=== PATIENT | female | born 1955 | race Asian ===

== ENCOUNTER 2020-02-14 15:06 | Emergency (ER) | payer BC ==
[~2020-02-14] VITALS: Ht 170.2 cm; Wt 91.0 kg
[2020-02-14] MEDS ORDERED: LIDOCAINE HCL/PF 1% 10 MG/ML 5ML VIAL IJ ONE (16:30)
[2020-02-14] MEDS ORDERED: TETANUS, DIPHTHERIA, PERTUSSIS VAC/PF 0.5ML (>7YR OLD) IM ONE (16:30)
[2020-02-14] MEDS ORDERED: BACITRACIN ZINC OINT UDPKT TOP ONE (16:30)
[2020-02-14 18:10] VITALS: BP 168/89
== END 2020-02-14 18:35 | disposition home or self-care (01) ==
LOC: ER 15:06
DX: S61.011A Laceration without foreign body of right thumb without damage to nail, initial encounter (principal); E11.9 Type 2 diabetes mellitus without complications; E78.00 Pure hypercholesterolemia, unspecified; I10 Essential (primary) hypertension; Z88.6 Allergy status to analgesic agent; Z98.890 Other specified postprocedural states; Z90.710 Acquired absence of both cervix and uterus; X58.XXXA Exposure to other specified factors, initial encounter; Y93.89 Activity, other specified; Y92.89 Other specified places as the place of occurrence of the external cause; Y99.8 Other external cause status
CPT/HCPCS: 12001; 90471; 90715; 99283; J3490

== ENCOUNTER 2021-05-13 12:28 | Inpatient (IN) | payer BC ==
[~2021-05-13] VITALS: Ht 170.2 cm; Wt 90.7 kg
[2021-05-13] MEDS ORDERED: ADENOSINE 3 MG/ML 2ML VIAL IV ONE ×3 (13:00)
[2021-05-13] MEDS ORDERED: ASPIRIN 81MG TABLET PO ONE (13:00)
[2021-05-13] MEDS ORDERED: SODIUM CHLORIDE 0.9% 1,000 ML IV ONE (13:00)
[2021-05-13 13:26] LABS: CHLORIDE 104 mEq/L (98-107)
[2021-05-13 13:30] LABS: BASOPHILS % 1.2 % (0.0-2.0); EOSINOPHILS % 2.4 % (0.0-5.0); HEMOGLOBIN. 13.9 g/dL (12.0-16.0); LYMPHOCYTES % 24.2 % (20.0-50.0); MEAN CORPUSCULAR HEMOGLOBIN 28.5 pg (28.0-32.0); MEAN CORPUSCULAR VOLUME 86.6 fL (81.0-99.0); MEAN PLATELET VOLUME 8.1 fl (7.4-10.4); MONOCYTES % 6.4 % (2.0-8.0); NEUTROPHILS % 65.8 % (40.0-76.0); PLATELET 300 x1000/uL (130-400); RED BLOOD CELL COUNT 4.86 mill/uL (4.2-5.4); RED CELL DISTRIBUTION WIDTH 14.9 % (11.6-14.6)
[2021-05-13 13:32] LABS: D-DIMER 0.86 mg/L FEU (<0.50); PARTIAL THROMBOPLASTIN TIME 28.7 sec (23.4-31.0); PROTHROMBIN TIME 10.5 sec (9.6-11.0)
[2021-05-13] MEDS ORDERED: DEXT 5% IV STA (13:44)
[2021-05-13] MEDS ORDERED: PROCAINAMIDE HCL IV STA (13:44)
[2021-05-13] MEDS ORDERED: WATER IV STA (13:44)
[2021-05-13] MEDS ORDERED: PROCAINAMIDE HCL IV NR (14:15)
[2021-05-13] MEDS ORDERED: ENOXAPARIN 100MG/ML SYR SUBCUT ONE (14:15)
[2021-05-13] MEDS ORDERED: WATER IV NR (14:15)
[2021-05-13] MEDS ORDERED: DEXT 5% IV NR (14:15)
[2021-05-13] MEDS ORDERED: DILTIAZEM HCL 125 MG in DEXT 5% WATER 100 ML IV PRN (15:45)
[2021-05-13] MEDS ORDERED: DILTIAZEM HCL 5MG/ML 5ML VIAL IV NR (16:00)
[2021-05-13] MEDS ORDERED: ACETAMINOPHEN 325MG TABLET PO PRN (16:45)
[2021-05-13] MEDS ORDERED: ENOXAPARIN 40MG/0.4ML SYR SUBCUT SCH (16:45)
[2021-05-13] MEDS ORDERED: GUAIFENESIN 200MG/10ML SUGAR FREE UDC PO PRN (16:45)
[2021-05-13] MEDS: DILTIAZEM HCL 125 MG in DEXT 5% WATER 100 ML IV PRN (16:45)
[2021-05-13] MEDS ORDERED: MAGNESIUM/ALUMINUM HYDROXIDE/SIMETHICONE 30ML UDC PO PRN (16:45)
[2021-05-13] MEDS ORDERED: CLONIDINE 0.1MG TABLET PO PRN (16:45)
[2021-05-13] MEDS ORDERED: IPRATROPIUM/ALBUTEROL 0.5-3(2.5)MG/3ML NEB NEB PRN (16:45)
[2021-05-13] MEDS ORDERED: DOCUSATE SODIUM 100MG CAPSULE PO PRN (16:45)
[2021-05-13] MEDS ORDERED: DEXTROSE 50% WATER 50ML SYRINGE IV PRN (16:45)
[2021-05-13] MEDS ORDERED: NITROGLYCERIN 0.4MG TABLET SL SL PRN (16:45)
[2021-05-13 17:09] LABS: TOTAL IRON BINDING CAPACITY 210 ug/dL (250-450)
[2021-05-13 17:42] LABS: VITAMIN B12 SERUM 592 pg/mL (211-911)
[2021-05-13 17:44] LABS: FOLIC ACID (FOLATE) SERUM > 20.00 ng/mL (>5.38)
[2021-05-13] MEDS: INSULIN LISPRO 100 UNITS/ML SUBCUT SCH ×2 (18:20→23:45)
[2021-05-13] MEDS ORDERED: ZOLPIDEM TARTRATE 5MG TABLET PO PRN (20:00)
[2021-05-13] MEDS ORDERED: NALOXONE HCL 0.4MG/ML VIAL IV PRN (20:15)
[2021-05-13] MEDS: FUROSEMIDE 40MG/4ML VIAL IVP SCH (21:08)
[2021-05-13] MEDS: SPIRONOLACTONE 25MG TABLET PO SCH (21:09)
[2021-05-13] MEDS: DILTIAZEM HCL 60MG TABLET PO SCH ×2 (21:09→23:35)
[2021-05-13] MEDS: FAMOTIDINE 20MG TABLET PO SCH (21:09)
[2021-05-13 22:50] VITALS: BP 136/106
[2021-05-13 23:20] VITALS: BP 112/75
[2021-05-13] MEDS: ASCORBIC ACID 500 MG TABLET PO SCH (23:35)
[2021-05-13] MEDS: BLOOD SUGAR DIAGNOSTIC STRIP TEST SCH (23:43)
[2021-05-13 23:50] VITALS: BP 117/76
[2021-05-14] VITALS (39 sets, daily range): BP systolic 100–159; BP diastolic 32–107
[2021-05-14 00:59] LABS: CREATINE KINASE 65 IU/L (26-192)
[2021-05-14 01:00] LABS: CREATINE KINASE MB FRACTION < 1.0 ng/mL (0.5-3.6)
[2021-05-14] MEDS: DILTIAZEM HCL 125 MG in DEXT 5% WATER 100 ML IV PRN (03:00)
[2021-05-14] MEDS: ENOXAPARIN 100MG/ML SYR SUBCUT SCH ×2 (06:24→17:26)
[2021-05-14] MEDS: FUROSEMIDE 40MG/4ML VIAL IVP SCH (06:25)
[2021-05-14] MEDS: DILTIAZEM HCL 60MG TABLET PO SCH (06:25)
[2021-05-14 06:41] LABS: BASOPHILS % 1.1 % (0.0-2.0); EOSINOPHILS % 1.6 % (0.0-5.0); HEMATOCRIT. 37.2 % (36.0-48.0); HEMOGLOBIN. 12.8 g/dL (12.0-16.0); LYMPHOCYTES % 15.3 % (20.0-50.0); MEAN CORPUSCULAR HEMOGLOBIN 30.1 pg (28.0-32.0); MEAN CORPUSCULAR VOLUME 87.3 fL (81.0-99.0); MEAN PLATELET VOLUME 8.1 fl (7.4-10.4); MONOCYTES % 5.8 % (2.0-8.0); NEUTROPHILS % 76.2 % (40.0-76.0); PLATELET 241 x1000/uL (130-400); RED BLOOD CELL COUNT 4.27 mill/uL (4.2-5.4); RED CELL DISTRIBUTION WIDTH 14.7 % (11.6-14.6)
[2021-05-14 06:59] LABS: CHLORIDE 108 mEq/L (98-107)
[2021-05-14 07:22] LABS: PHOSPHORUS 3.1 mg/dL (2.5-4.9)
[2021-05-14 07:24] LABS: CREATINE KINASE 68 IU/L (26-192)
[2021-05-14 07:26] LABS: CREATINE KINASE MB FRACTION < 1.0 ng/mL (0.5-3.6)
[2021-05-14] MEDS: BLOOD SUGAR DIAGNOSTIC STRIP TEST SCH ×4 (07:50→21:52)
[2021-05-14] MEDS ORDERED: ASPIRIN 325MG EC TABLET PO SCH (09:00)
[2021-05-14] MEDS: ZINC SULFATE 220 MG ( 50 ) CAPSULE PO SCH (09:14)
[2021-05-14] MEDS: FAMOTIDINE 20MG TABLET PO SCH ×2 (09:14→21:50)
[2021-05-14] MEDS: ASCORBIC ACID 500 MG TABLET PO SCH ×2 (09:14→21:50)
[2021-05-14] MEDS: SPIRONOLACTONE 25MG TABLET PO SCH ×2 (09:14→21:51)
[2021-05-14] MEDS: CHOLECALCIFEROL (D3) 1000 UNIT TABLET PO SCH (09:15)
[2021-05-14] MEDS: INSULIN LISPRO 100 UNITS/ML SUBCUT SCH ×4 (09:16→21:52)
[2021-05-14] MEDS: DILTIAZEM HCL 90MG TABLET PO SCH ×3 (12:16→23:42)
[2021-05-14 14:32] LABS: CLARITY URINE CLEAR (CLEAR); COLOR URINE YELLOW (YELLOW); KETONES URINE NEGATIVE (NEGATIVE); LEUKOCYTE ESTERASE URINE NEGATIVE (NEGATIVE); NITRITE URINE NEGATIVE (NEGATIVE); OCCULT BLOOD URINE NEGATIVE (NEGATIVE); PH URINE 5.5 (4.5-8.0); PROTEIN URINE NEGATIVE (NEGATIVE); SPECIFIC GRAVITY URINE 1.008 (1.005-1.030); UROBILINOGEN URINE 0.2 E.U./dL (0.2-1.0)
[2021-05-14 14:36] LABS: OPIATES URINE SCREEN NEGATIVE (NEGATIVE)
[2021-05-14 14:37] LABS: *AMPHETAMINES SCREEN URINE NEGATIVE (NEGATIVE); *BARBITURATES SCREEN URINE NEGATIVE (NEGATIVE); *BENZODIAZEPINES SCREEN URINE NEGATIVE (NEGATIVE); *COCAINE SCREEN URINE NEGATIVE (NEGATIVE); CANNABINOID URINE SCREEN NEGATIVE (NEGATIVE); METHADONE URINE SCREEN NEGATIVE (NEGATIVE); PHENCYCLIDINE URINE SCREEN NEGATIVE (NEGATIVE)
[2021-05-15] VITALS (32 sets, daily range): BP systolic 96–178; BP diastolic 43–93
[2021-05-15] MEDS: ENOXAPARIN 100MG/ML SYR SUBCUT SCH (06:10)
[2021-05-15] MEDS: DILTIAZEM HCL 90MG TABLET PO SCH (06:13)
[2021-05-15 06:17] LABS: BASOPHILS % 1.1 % (0.0-2.0); EOSINOPHILS % 2.6 % (0.0-5.0); HEMOGLOBIN. 12.8 g/dL (12.0-16.0); LYMPHOCYTES % 19.9 % (20.0-50.0); MEAN CORPUSCULAR HEMOGLOBIN 28.9 pg (28.0-32.0); MEAN PLATELET VOLUME 8.2 fl (7.4-10.4); MONOCYTES % 7.6 % (2.0-8.0); NEUTROPHILS % 68.8 % (40.0-76.0); PLATELET 234 x1000/uL (130-400); RED BLOOD CELL COUNT 4.42 mill/uL (4.2-5.4); RED CELL DISTRIBUTION WIDTH 14.6 % (11.6-14.6)
[2021-05-15] MEDS: BLOOD SUGAR DIAGNOSTIC STRIP TEST SCH ×4 (08:28→20:55)
[2021-05-15] MEDS: ASCORBIC ACID 500 MG TABLET PO SCH ×2 (08:36→20:54)
[2021-05-15] MEDS: CHOLECALCIFEROL (D3) 1000 UNIT TABLET PO SCH (08:36)
[2021-05-15] MEDS: FAMOTIDINE 20MG TABLET PO SCH ×2 (08:36→20:55)
[2021-05-15] MEDS: SPIRONOLACTONE 25MG TABLET PO SCH ×2 (08:36→20:55)
[2021-05-15] MEDS: ASPIRIN 81MG EC TABLET PO SCH (08:38)
[2021-05-15] MEDS: ZINC SULFATE 220 MG ( 50 ) CAPSULE PO SCH (08:38)
[2021-05-15] MEDS: INSULIN LISPRO 100 UNITS/ML SUBCUT SCH ×4 (08:39→20:56)
[2021-05-15] MEDS ORDERED: APIXABAN 5 MG TABLET PO SCH (09:30)
[2021-05-15] MEDS ORDERED: DILTIAZEM HCL 90MG TABLET PO SCH (12:00)
[2021-05-15] MEDS: APIXABAN 5 MG TABLET PO SCH (18:47)
[2021-05-15] MEDS: ACETAMINOPHEN 325MG TABLET PO PRN (20:54)
[2021-05-15] MEDS: ATORVASTATIN CALCIUM 40MG TABLET PO SCH (20:54)
[2021-05-15] MEDS: DILTIAZEM HCL 180MG CAPSULE CD 24HR PO SCH (20:55)
[2021-05-16] VITALS (23 sets, daily range): BP systolic 96–141; BP diastolic 48–90
[2021-05-16 06:55] LABS: BASOPHILS % 0.6 % (0.0-2.0); EOSINOPHILS % 1.8 % (0.0-5.0); HEMATOCRIT. 37.4 % (36.0-48.0); HEMOGLOBIN. 12.7 g/dL (12.0-16.0); LYMPHOCYTES % 13.8 % (20.0-50.0); MEAN CORPUSCULAR HEMOGLOBIN 29.1 pg (28.0-32.0); MEAN CORPUSCULAR VOLUME 85.4 fL (81.0-99.0); MONOCYTES % 7.9 % (2.0-8.0); NEUTROPHILS % 75.9 % (40.0-76.0); PLATELET 255 x1000/uL (130-400); RED BLOOD CELL COUNT 4.38 mill/uL (4.2-5.4); RED CELL DISTRIBUTION WIDTH 14.8 % (11.6-14.6)
[2021-05-16 07:06] LABS: CHLORIDE 107 mEq/L (98-107)
[2021-05-16 07:11] LABS: PHOSPHORUS 3.8 mg/dL (2.5-4.9)
[2021-05-16] MEDS: BLOOD SUGAR DIAGNOSTIC STRIP TEST SCH ×4 (07:47→21:00)
[2021-05-16] MEDS: ASCORBIC ACID 500 MG TABLET PO SCH ×2 (08:34→20:48)
[2021-05-16] MEDS: FAMOTIDINE 20MG TABLET PO SCH ×2 (08:34→20:49)
[2021-05-16] MEDS: CHOLECALCIFEROL (D3) 1000 UNIT TABLET PO SCH (08:34)
[2021-05-16] MEDS: ASPIRIN 81MG EC TABLET PO SCH (08:34)
[2021-05-16] MEDS: APIXABAN 5 MG TABLET PO SCH ×2 (08:34→16:56)
[2021-05-16] MEDS: ZINC SULFATE 220 MG ( 50 ) CAPSULE PO SCH (08:34)
[2021-05-16] MEDS: SPIRONOLACTONE 25MG TABLET PO SCH ×2 (08:35→20:49)
[2021-05-16] MEDS: INSULIN LISPRO 100 UNITS/ML SUBCUT SCH ×4 (08:36→21:09)
[2021-05-16] MEDS: ACETAMINOPHEN 325MG TABLET PO PRN (08:48)
[2021-05-16] MEDS: DILTIAZEM HCL 180MG CAPSULE CD 24HR PO SCH ×2 (08:57→20:16)
[2021-05-16] MEDS ORDERED: POTASSIUM CHLORIDE 20MEQ/PACKET PO SCH (09:00)
[2021-05-16] MEDS ORDERED: METOPROLOL TARTRATE 25MG TABLET PO SCH (09:30)
[2021-05-16] MEDS: DILTIAZEM HCL 5MG/ML 5ML VIAL IV PRN ×4 (09:39→20:48)
[2021-05-16] MEDS ORDERED: METHYLPREDNISOLONE SOD SUCC 125 MG/2 ML VIAL IV NR (11:15)
[2021-05-16] MEDS: METOPROLOL TARTRATE 25MG TABLET PO SCH ×2 (14:30→22:09)
[2021-05-16] MEDS ORDERED: REGADENOSON 0.4 MG/5 ML IV NR (14:30)
[2021-05-16] MEDS ORDERED: PNEUMOCOCCAL 23-VAL P-SAC VAC 0.5 ML IM ONE (16:00)
[2021-05-16] MEDS: TRAMADOL 50MG TABLET PO PRN (16:57)
[2021-05-16] MEDS: ATORVASTATIN CALCIUM 40MG TABLET PO SCH (20:48)
[2021-05-16] MEDS: ONDANSETRON HCL 4MG/2ML INJ IV PRN (22:51)
[2021-05-17] VITALS (12 sets, daily range): BP systolic 107–140; BP diastolic 61–95
[2021-05-17] MEDS: METOPROLOL TARTRATE 25MG TABLET PO SCH ×2 (06:14→21:58)
[2021-05-17] MEDS: BLOOD SUGAR DIAGNOSTIC STRIP TEST SCH ×4 (06:21→21:00)
[2021-05-17] MEDS: INSULIN LISPRO 100 UNITS/ML SUBCUT SCH ×4 (06:21→21:00)
[2021-05-17 07:57] LABS: BASOPHILS % 0.5 % (0.0-2.0); CHLORIDE 104 mEq/L (98-107); EOSINOPHILS % 0.2 % (0.0-5.0); HEMATOCRIT. 38.7 % (36.0-48.0); HEMOGLOBIN. 13.4 g/dL (12.0-16.0); MEAN CORPUSCULAR HEMOGLOBIN 29.5 pg (28.0-32.0); MEAN CORPUSCULAR VOLUME 85.4 fL (81.0-99.0); MEAN PLATELET VOLUME 8.3 fl (7.4-10.4); MONOCYTES % 5.4 % (2.0-8.0); NEUTROPHILS % 82.9 % (40.0-76.0); PLATELET 246 x1000/uL (130-400); RED BLOOD CELL COUNT 4.54 mill/uL (4.2-5.4); RED CELL DISTRIBUTION WIDTH 14.5 % (11.6-14.6)
[2021-05-17] MEDS: ASPIRIN 81MG EC TABLET PO SCH (09:13)
[2021-05-17] MEDS: FAMOTIDINE 20MG TABLET PO SCH ×2 (09:14→21:58)
[2021-05-17] MEDS: ZINC SULFATE 220 MG ( 50 ) CAPSULE PO SCH (09:14)
[2021-05-17] MEDS: APIXABAN 5 MG TABLET PO SCH ×2 (09:14→17:40)
[2021-05-17] MEDS: SPIRONOLACTONE 25MG TABLET PO SCH (09:14)
[2021-05-17] MEDS: CHOLECALCIFEROL (D3) 1000 UNIT TABLET PO SCH (09:14)
[2021-05-17] MEDS: DILTIAZEM HCL 180MG CAPSULE CD 24HR PO SCH ×2 (09:14→21:58)
[2021-05-17] MEDS: ASCORBIC ACID 500 MG TABLET PO SCH ×2 (09:14→21:58)
[2021-05-17] MEDS ORDERED: REGADENOSON 0.4 MG/5 ML IV ONE (10:46)
[2021-05-17] MEDS: TRAMADOL 50MG TABLET PO PRN (12:10)
[2021-05-17] MEDS: ONDANSETRON HCL 4MG/2ML INJ IV PRN (12:10)
[2021-05-17] MEDS: DIGOXIN 500MCG/2ML AMP IV SCH (20:15)
[2021-05-17] MEDS: ATORVASTATIN CALCIUM 40MG TABLET PO SCH (21:58)
[2021-05-18] VITALS (12 sets, daily range): BP systolic 111–152; BP diastolic 17–80
[2021-05-18] MEDS: DIGOXIN 500MCG/2ML AMP IV SCH ×2 (00:34→04:30)
[2021-05-18] MEDS: BLOOD SUGAR DIAGNOSTIC STRIP TEST SCH ×4 (06:41→20:39)
[2021-05-18] MEDS: FAMOTIDINE 20MG TABLET PO SCH ×2 (08:30→20:59)
[2021-05-18] MEDS: CHOLECALCIFEROL (D3) 1000 UNIT TABLET PO SCH (08:30)
[2021-05-18] MEDS: ASPIRIN 81MG EC TABLET PO SCH (08:30)
[2021-05-18] MEDS: ZINC SULFATE 220 MG ( 50 ) CAPSULE PO SCH (08:30)
[2021-05-18] MEDS: DILTIAZEM HCL 180MG CAPSULE CD 24HR PO SCH ×2 (08:31→20:59)
[2021-05-18] MEDS: ASCORBIC ACID 500 MG TABLET PO SCH ×2 (08:31→20:59)
[2021-05-18] MEDS: APIXABAN 5 MG TABLET PO SCH ×2 (08:31→18:33)
[2021-05-18] MEDS: METOPROLOL TARTRATE 25MG TABLET PO SCH ×2 (08:31→20:59)
[2021-05-18] MEDS: INSULIN LISPRO 100 UNITS/ML SUBCUT SCH ×4 (08:33→21:00)
[2021-05-18] MEDS: DIGOXIN 125MCG TABLET PO SCH (18:33)
[2021-05-18] MEDS: ATORVASTATIN CALCIUM 40MG TABLET PO SCH (20:59)
[2021-05-19] VITALS (12 sets, daily range): BP systolic 108–147; BP diastolic 62–91
[2021-05-19] MEDS: BLOOD SUGAR DIAGNOSTIC STRIP TEST SCH ×4 (05:50→20:26)
[2021-05-19 06:52] LABS: HEMATOCRIT 39.4 % (36.0-48.0); HEMOGLOBIN 13.2 g/dL (12.0-16.0); MEAN CORPUSCULAR HEMOGLOBIN 28.3 pg (28.0-32.0); MEAN CORPUSCULAR VOLUME 84.5 fL (81.0-99.0); PLATELET 284 x1000/uL (130-400); RED BLOOD CELL COUNT 4.66 mill/uL (4.2-5.4); RED CELL DISTRIBUTION WIDTH 14.9 % (11.6-14.6)
[2021-05-19 07:09] LABS: CHLORIDE 103 mEq/L (98-107)
[2021-05-19] MEDS: INSULIN LISPRO 100 UNITS/ML SUBCUT SCH ×4 (07:20→20:26)
[2021-05-19] MEDS: METOPROLOL TARTRATE 25MG TABLET PO SCH ×2 (09:01→20:25)
[2021-05-19] MEDS: APIXABAN 5 MG TABLET PO SCH ×2 (09:02→17:34)
[2021-05-19] MEDS: CHOLECALCIFEROL (D3) 1000 UNIT TABLET PO SCH (09:02)
[2021-05-19] MEDS: ASCORBIC ACID 500 MG TABLET PO SCH ×2 (09:02→20:25)
[2021-05-19] MEDS: FAMOTIDINE 20MG TABLET PO SCH (09:02)
[2021-05-19] MEDS: DILTIAZEM HCL 180MG CAPSULE CD 24HR PO SCH ×2 (09:02→20:25)
[2021-05-19] MEDS: ZINC SULFATE 220 MG ( 50 ) CAPSULE PO SCH (10:11)
[2021-05-19] MEDS: DIGOXIN 125MCG TABLET PO SCH (17:34)
[2021-05-19] MEDS: ATORVASTATIN CALCIUM 40MG TABLET PO SCH (20:25)
[2021-05-20] VITALS (9 sets, daily range): BP systolic 106–143; BP diastolic 57–82
[2021-05-20] MEDS: BLOOD SUGAR DIAGNOSTIC STRIP TEST SCH ×2 (05:57→11:50)
[2021-05-20] MEDS: ZINC SULFATE 220 MG ( 50 ) CAPSULE PO SCH (08:03)
[2021-05-20] MEDS: DILTIAZEM HCL 180MG CAPSULE CD 24HR PO SCH (08:03)
[2021-05-20] MEDS: CHOLECALCIFEROL (D3) 1000 UNIT TABLET PO SCH (08:03)
[2021-05-20] MEDS: METOPROLOL TARTRATE 25MG TABLET PO SCH (08:03)
[2021-05-20] MEDS: APIXABAN 5 MG TABLET PO SCH (08:03)
[2021-05-20] MEDS: ASCORBIC ACID 500 MG TABLET PO SCH (08:03)
[2021-05-20] MEDS: INSULIN LISPRO 100 UNITS/ML SUBCUT SCH ×2 (08:06→13:05)
[2021-05-20] MEDS: ACETAMINOPHEN 325MG TABLET PO PRN (10:32)
== END 2021-05-20 13:58 | disposition home or self-care (01) | DRG 310 ==
LOC: ER 12:28 → CVICU 14:47 → EDBEDREQTM 15:02 → EDBEDREQ 15:02 → SUPCPDRO 16:30 → ENRESERV 21:22 → 3WST 05-16 15:25
PROVIDERS: ADMIT Internal Medicine; ATTEND Internal Medicine
DX: I48.91 Unspecified atrial fibrillation (principal); E66.9 Obesity, unspecified; I11.0 Hypertensive heart disease with heart failure; E78.5 Hyperlipidemia, unspecified; E78.00 Pure hypercholesterolemia, unspecified; I50.9 Heart failure, unspecified; L29.9 Pruritus, unspecified; E11.9 Type 2 diabetes mellitus without complications; Z20.822 Contact with and (suspected) exposure to COVID-19; I25.10 Atherosclerotic heart disease of native coronary artery without angina pectoris; Z98.84 Bariatric surgery status; Z88.6 Allergy status to analgesic agent; Z88.5 Allergy status to narcotic agent; Z88.8 Allergy status to other drugs, medicaments and biological substances; Z79.899 Other long term (current) drug therapy; Z90.710 Acquired absence of both cervix and uterus; Z82.49 Family history of ischemic heart disease and other diseases of the circulatory system; Z68.31 Body mass index [BMI] 31.0-31.9, adult; Z79.82 Long term (current) use of aspirin; Z79.4 Long term (current) use of insulin; Z91.041 Radiographic dye allergy status; Z79.01 Long term (current) use of anticoagulants
CPT/HCPCS: 36415; 71045; 78452; 78582; 80048; 80053; 80061; 80162; 80305; 81003; 82550; 82553; 82607; 82746; 82962; 83036; 83540; 83550; 83735; 83880; 84100; 84443; 84481; 84484; 85025; 85027; 85379; 87426; 93005; 93017; 93306; 93970; 97166; 99291; A9500; A9558; J0153; J1160; J1650; J1815; J1940; J2405; J2690; J2785; J2930; J3490; J7030; J7060